=== PATIENT | female | born 1950 | race Caucasian/White ===

== ENCOUNTER 2019-04-24 12:45 | Emergency (ER) | payer OTHER ==
[~2019-04-24] VITALS: Ht 175.3 cm; Wt 106.6 kg
[2019-04-24 13:04] LABS: Source, Urine Clean Catch
[2019-04-24 13:11] LABS: Blood, Urine 5+ (Neg); Glucose Qualitative, Urine Neg (Neg); Ketones, Urine 1+ (Neg); Leukocyte Esterase, Urine 3+ (Neg); Nitrite, Urine Pos (Neg); Protein, Urine 3+ (Neg); Urobilinogen, Urine 1+ (Normal)
[2019-04-24 14:02] LABS: Bilirubin, Urine 1+ (Neg)
[2019-04-24 14:03] LABS: Appearance, Urine Turbid (Clear); Color, Urine Yellow (P-Yellow)
[2019-04-24] MEDS ORDERED: METO25ER PO (14:09)
[2019-04-24] MEDS ORDERED: TRULICITY1.5 MG/0.5 SQ (14:10)
[2019-04-24] MEDS ORDERED: LISI5 PO (14:10)
[2019-04-24] MEDS ORDERED: PANT40 PO (14:10)
[2019-04-24] MEDS ORDERED: JARDIANCE10 MG PO (14:11)
[2019-04-24] MEDS ORDERED: LEVSOD125 PO (14:11)
[2019-04-24] MEDS ORDERED: LORA1 PO (14:12)
[2019-04-24] MEDS ORDERED: BUSP10 PO (14:13)
[2019-04-24] MEDS ORDERED: ATOR40TA (14:13)
[2019-04-24] MEDS ORDERED: Fosamax70 MG PO (14:14)
[2019-04-24] MEDS ORDERED: NITR.4SL SL (14:14)
[2019-04-24] MEDS ORDERED: CETI5 PO (14:14)
[2019-04-24] MEDS ORDERED: ASPI81CH PO (14:14)
[2019-04-24 14:17] LABS: White Blood Cells, Urine TNTC /hpf (0-5)
[2019-04-24 14:18] LABS: Bacteria Many /hpf; Red Blood Cells, Urine 50-100 /hpf (0-2); Squamous Epithelial Cells Few /hpf (Few)
[2019-04-24] MEDS ORDERED: Cipro250 MG PO (14:36)
[2019-04-24] MEDS ORDERED: BENZ100A PO (14:36)
[2019-04-24] MEDS ORDERED: Cheratussin AC118 ML PO (14:36)
== END 2019-04-24 14:52 | disposition home or self-care (01) ==
LOC: ER 12:45
PROVIDERS: Emergency Medicine
DX: J40 Bronchitis, not specified as acute or chronic (principal); N39.0 Urinary tract infection, site not specified; J45.909 Unspecified asthma, uncomplicated; N18.9 Chronic kidney disease, unspecified; Z79.899 Other long term (current) drug therapy; Z79.82 Long term (current) use of aspirin
CPT/HCPCS: 71046; 81001; 87077; 87086; 87186; 99283-25